=== PATIENT | female | born 1965 | race Caucasian/White ===

== ENCOUNTER 2017-04-30 08:35 | Emergency (ER) | payer OTHER ==
[~2017-04-30] VITALS: Ht 165.1 cm; Wt 70.3 kg
[2017-04-30 09:00] LABS: ABSOLUTE BASOPHIL COUNT 0 /CUMM (0.0-0.2); ABSOLUTE EOSINOPHIL COUNT 0 /CUMM (0.0-0.7); ABSOLUTE GRANULOCYTE CT 5.5 /CUMM (1.4-6.5); ABSOLUTE LYMPH COUNT 1.1 /CUMM (1.2-3.4); ABSOLUTE MONOCYTE COUNT 0.4 /CUMM (0.10-0.60); BASOPHIL % 0.3 % (0.0-2.0); EOSINOPHIL % 0.1 % (0-5); HEMATOCRIT 40.8 % (37-47); MEAN CORPUSCULAR HGB 31.2 PG (27.0-31.0); MEAN CORPUSCULAR HGB CONC 34.5 G/DL (33.0-37.0); MEAN CORPUSCULAR VOLUME 90.4 FL (81.0-99.0); MEAN PLATELET VOLUME 7.3 FL (7.4-10.4); PLATELET COUNT 269 /CUMM (130-400); RBC DISTRIBUTION WIDTH 12.7 % (11.5-14.5); RED BLOOD CELL CT 4.52 /CUMM (4.20-5.40); WHITE BLOOD CELL COUNT 7.1 /CUMM (4.8-10.8)
--- NOTE | 2017-04-30 10:11 | ED GI/GU/ABDOMINAL COMPLAINT ---
History of Present Illness General Chief Complaint: Abdominal Pain/Flank Pain Stated Complaint: SIB WALKIN FOR "ISSUES WITH MY GALLBLADDER" Source: patient, family Exam Limitations: no limitations Vital Signs & Intake/Output Vital Signs & Intake/Output Vital Signs Date Time Temp Pulse Resp B/P B/P Pulse O2 O2 Flow FiO2 Mean Ox Delivery Rate 04/30 1150 98.2 76 18 112/84 98 Room Air 04/30 1101 99 Room Air 04/30 0841 98.1 86 15 116/75 99 Room Air Room Air Allergies Coded Allergies: No Known Allergies (04/30/17) Triage Note: PT TO ED WITH C/C OF RUQ PAIN THAT STARTED LAST NIGHT. RECENTLY TREATED FOR THE FLU ON MONDAY. +N/V/D. SAW WALK IN CLINIC AND SENT TO ED FOR EVAL OF GALL BLADDER. Triage Nurses Notes Reviewed? yes ? n Is pt currently ? No Onset: Gradual Duration: hour(s): (12) Timing: no prior history Quality/Severity: cramping, sharpness Severity Numbers: 8 Location: epigastric, right upper quadrant Radiation: back Activities at Onset: none Prior Abdominal Problems: none Past Sexual History: Unobtainable at this time Modifying Factors: Improves With: other (ibuprofen). HPI: Patient is a 52-year-old female presenting to the emergency department with chief complaint of epigastric pain and right upper quadrant pain that began yesterday evening around 8 PM. She reports associated nausea and vomiting and diarrhea. She reports 2-3 episodes of loose stool. No change in color. Denies blood in the stool. She just reports when his episode of emesis that was nonbloody and nonbilious. Generalized malaise. Patient currently being treated for flu on Tamiflu. She was diagnosed 4 days ago. Was doing well and then the symptoms started yesterday evening. She reports that she did not even eat dinner yesterday evening. Patient denies any chest pain palpitations or shortness of breath. She tried taking [id number] ibuprofen and Pepto- Bismol with minimal relief. Brother has history of pancreatitis secondary to drug use and her sister has history of gallstones, still has her gallbladder. Denies recent travel. No recent antibiotics. (Ana PETERSEN,Allison) Reconcile Medications Hyoscyamine (Levsin) 0.125 MG TABLET 1 TAB PO Q4 PRN abdominal spasms Ondansetron (Zofran Odt) 4 MG TAB.RAPDIS 1 TAB SL TID PRN nausea (Kathy BABIN,Irineo) Past History Travel History Traveled to [place] past 21 day No Medical History Any Pertinent Medical History? see below for history Neurological: NONE EENT: NONE Cardiovascular: NONE Respiratory: NONE Gastrointestinal: NONE Hepatic: NONE Renal: NONE Musculoskeletal: NONE Psychiatric: NONE Endocrine: NONE Blood Disorders: NONE Cancer(s): NONE GARDENER FLORIST/Reproductive: NONE Surgical History Surgical History: non-contributory Psychosocial History What is your primary language Kiswahili Tobacco Use: Never used ETOH Use: denies use Illicit Drug Use: denies illicit drug use Family History Hx Contributory? No (Allison Jovel) Review of Systems Review of Systems Constitutional: Reports: see HPI, malaise. Comments Review of systems: See HPI, All other systems negative. Constitutional, no weight loss HEENT: No visual changes no sore throat no congestion Cardiovascular: No chest pain ,palpitation , orthopnea or ankle swelling Skin, no jaundice no rashes Respiratory: No dyspnea cough sputum or hemoptysis GI: Positive nausea, vomiting, diarrhea : No dysuria No hematuria Muscle skeletal: no back pain, no neck pain, Neurologic: No numbness no confusion Psych: No stress anxiety or depression,. Heme/endocrine: No bruising no bleeding no polyuria or polydipsia Immunology: No splenectomy or history of AIDS (Allison Jovel) Physical Exam Physical Exam General Appearance: well developed/nourished, no apparent distress, alert, awake , comfortable Gastrointestinal: normal bowel sounds, soft, tenderness Comments: Well-developed well-nourished person in no acute distress HEENT:Pupils equally round and reactive to light and accommodation. Nose is atraumatic. External auditory canal and Tympanic membranes clear. Pharynx normal. No swelling or edema. Neck: Normal inspection Back: Mild right CVA tenderness, no left CVA tenderness. Cardiovascular: Regular rate and rhythms no murmurs rubs or gallops, normal JVP Respiratory: Chest nontender. No respiratory distress.breath sounds clear to auscultation bilaterally Abdomen: Soft, tenderness palpation in the epigastric and right upper quadrant, negative Godinez sign, nondistended, no appreciable organomegaly. Normal bowel sounds. No ascites Extremity: No edema Neuro: Alert oriented x3 Skin: No appreciable rash on exposed skin, skin is warm and dry. Psych: Mood and affect is normal, memory and judgment is normal. Core Measures ACS in differential dx? No Sepsis Present: No Sepsis Focused Exam Completed? No (Ana PETERSEN,Allison) Progress Differential Diagnosis: viral gastroenteritits, pancreatitis, gallstones, cholecystitis, pud gastritis, med reaction, dehydration, electrolyte abnormality Plan of Care: Orders Procedure Date/time Status LIPASE 04/30 849 Complete URINALYSIS 04/30 842 Complete COMPREHENSIVE METABOLIC PANEL 04/30 842 Complete CBC WITHOUT DIFFERENTIAL 04/30 842 Complete Laboratory Tests 04/30/17 0939: Urinalysis LIGHT H, Urine Color YEL, Urine Clarity CLEAR, Urine pH 6.0, Ur Specific [place] >= 1.030, Urine Protein 30 H, Urine Ketones NEG, Urine Nitrite NEG, Urine Bilirubin NEG, Urine Urobilinogen 0.2, Ur Leukocyte Esterase NEG, Ur Microscopic SEDIMENT EXAMINED, Urine RBC 1-3, Ur Epithelial Cells FEW, Urine Bacteria FEW H, Granular Casts RARE H, Urine Mucus FEW, Urine Hemoglobin TRACE -INTACT, Urine Glucose NEG 04/30/17 0850: Anion Gap 13, Estimated GFR > 60, BUN/Creatinine Ratio 21.7, Glucose 121 H, Calcium 9.4, Total Bilirubin 0.4, AST 26, ALT 25, Alkaline Phosphatase 78, Total Protein 7.6, Albumin 4.5, Globulin 3.1, Albumin/Globulin Ratio 1.5, Lipase 399 H, CBC w Diff NO MAN DIFF REQ, RBC 4.52, MCV 90.4, MCH 31.2 H, MCHC 34.5, RDW 12.7, MPV 7.3 L, Gran % 78.0 H, Lymphocytes % 15.9 L, Monocytes % 5.7, Eosinophils % 0.1, Basophils % 0.3, Absolute Granulocytes 5.5, Absolute Lymphocytes 1.1 L, Absolute Monocytes 0.4, Absolute Eosinophils 0, Absolute Basophils 0 04/30/17 0844: Lipase Cancelled Diagnostic Imaging: Viewed by Me: Ultrasound. Discussed w/RAD: Ultrasound. Radiology Impression: ORDERING PHYSICIAN: Allison PETERSEN SERVICE DATE: 04/30/17-1019 EXAM TYPE: US - US-LIMITED ABDOMEN EXAMINATION: US ABDOMEN LIMITED CLINICAL INFORMATION: Epigastric pain. COMPARISON: None TECHNIQUE: Real-time imaging of the right upper quadrant abdominal viscera. FINDINGS: PANCREAS: Normal. LIVER: Normal. The liver demonstrates normal size, contour and echogenicity. No focal lesion or intrahepatic biliary duct dilatation. GALLBLADDER: Normal. The gallbladder is physiologically distended without evidence of stones, sludge, polyps, wall thickening or pericholecystic fluid. COMMON BILE DUCT: The common bile duct is upper normal in size measuring 8 mm. RIGHT KIDNEY: Normal. No hydronephrosis. No renal calculi or focal parenchymal lesions. The kidney measures 12.6 cm in maximum dimension. FREE FLUID: None. IMPRESSION: Upper normal-sized common bile duct otherwise unremarkable exam. No gallstone seen. DICTATED BY: Katalina Corbett MD DATE/TIME DICTATED:04/30/171099 APPRAISER TIMBER:KELL DATE/TIME TRANSCRIBED:04/30/171099 CONFIDENTIAL, DO NOT COPY WITHOUT APPROPRIATE AUTHORIZATION. <Electronically signed in Other Vendor System> SIGNED BY: Katalina Corbett MD 04/30/17 1105 Initial ED EKG: none Comments: Patient feeling improved after IV hydration, Toradol. nausea has improved. Patient informed of laboratory results and imaging results. Weekly virally induced. She was informed of slightly elevated lipase. (Allison Jovel) Departure Departure Time of Disposition: 1128 Disposition: HOME OR SELF CARE Condition: Stable Clinical Impression Primary Impression: Pancreatitis Qualifiers: Chronicity: acute Pancreatitis type: unspecified pancreatitis type Acute pancreatitis complication: unspecified Qualified Code: K85.90 - Acute pancreatitis without necrosis or infection, unspecified Referrals: Kary Posada MD (PCP/Family) Jarad Valdez MD Additional Instructions: Follow-up with your family doctor in next 1-2 days. Increase fluids. Clear liquid diet for the next 1-2 days. Take [id number]-[id number] ibuprofen or Tylenol as directed for any aches or pains. Take Zofran as prescribed for nausea. take levsin to help with abdominal spasms. Departure Forms: Customer Survey General Discharge Information Prescriptions: Current Visit Scripts Hyoscyamine (Levsin) 1 TAB PO Q4 PRN abdominal spasms #40 TAB Ondansetron (Zofran Odt) 1 TAB SL TID PRN nausea #10 TAB (Allison Jovel) PA/WORLD GEOGRAPHY TEACHER Co-Sign Statement Statement: ED Attending supervision documentation- I saw and evaluated the patient. I have also reviewed all the pertinent lab results and diagnostic results. I agree with the findings and the plan of care as documented in the PA's/WORLD GEOGRAPHY TEACHER's documentation. x I have reviewed the ED Record and agree with the PA's/WORLD GEOGRAPHY TEACHER's documentation. [] Additions or exceptions (if any) to the PAs/WORLD GEOGRAPHY TEACHER's note and plan are summarized below: [] (Kathy BABIN,Irineo)
--- NOTE | 2017-04-30 11:05 | ULTRASOUND REPORT ---
EXAMINATION: US ABDOMEN LIMITED CLINICAL INFORMATION: Epigastric pain. COMPARISON: None TECHNIQUE: Real-time imaging of the right upper quadrant abdominal viscera. FINDINGS: PANCREAS: Normal. LIVER: Normal. The liver demonstrates normal size, contour and echogenicity. No focal lesion or intrahepatic biliary duct dilatation. GALLBLADDER: Normal. The gallbladder is physiologically distended without evidence of stones, sludge, polyps, wall thickening or pericholecystic fluid. COMMON BILE DUCT: The common bile duct is upper normal in size measuring 8 mm. RIGHT KIDNEY: Normal. No hydronephrosis. No renal calculi or focal parenchymal lesions. The kidney measures 12.6 cm in maximum dimension. FREE FLUID: None. IMPRESSION: Upper normal-sized common bile duct otherwise unremarkable exam. No gallstone seen.
[2017-04-30] MEDS ORDERED: ZOFRAN ODT4 M1 SL (11:29)
[2017-04-30] MEDS ORDERED: LEVSIN0.125 M1 PO (11:29)
[2017-04-30 11:50] VITALS: BP 112/84
== END 2017-04-30 11:51 ==
LOC: ERH 08:35
PROVIDERS: Emergency Medicine
DX: K85.90 Acute pancreatitis without necrosis or infection, unspecified (principal)
CPT/HCPCS: 81001; 96374; J1885; J3101